=== PATIENT | female | born 1960 | race Caucasian/White ===

== ENCOUNTER 2017-10-19 10:48 | Emergency (ER) | END 2017-10-19 13:24 | disposition home or self-care (01) ==

== ENCOUNTER 2018-10-04 07:38 | Day surgery (SDC) | payer OTHER ==
[~2018-10-04] VITALS: Ht 162.6 cm; Wt 77.8 kg
[~2018-10-04 07:38] MED LIST: ASPI81TA50 PO; ATOR-2 PO; FLUO40CA PO; IBUP-1542 PO; METO-335 PO; PANT40TA4 PO; TRAM50TA2 PO
[2018-10-04] MEDS ORDERED: cyclobenzaprine (08:56)
[2018-10-04] MEDS ORDERED: ranitidine (08:56)
--- NOTE | 2018-10-04 09:02 | PREAC ---
Date/Time of Note Date/Time of Note DATE: 10/04/18 TIME: 08:59 Anesthesia Eval and Record Evaluation Time Pre-Procedure Interview DATE: 10/04/18 TIME: 08:59 Age 58 Sex female NPO: 8 hrs Preoperative diagnosis Abdominal pain, Gastritis, GI bleed, screening Planned procedure EGD, Colonoscopy Past Medical History Past Medical History: Includes Cardio: Dyslipidemia, PTCA/Stent GI: GERD Surgery & Anesthesia Issues No known issue Meds Anticoagulation: No Beta Domingo within 24 hr: No Reason Beta Domingo not given: Pt. not on B-Domingo Reported Medications [ranitidine] No Conflict Check 10/04/18 [cyclobenzaprine] No Conflict Check 10/04/18 Atorvastatin* (Atorvastatin*) 80 Mg Tablet, 80 MG PO QHS, #30 10/19/17 Pantoprazole* (Pantoprazole*) 40 Mg Tablet.dr, 40 MG PO AC BREAKFAST, #30 10/19/17 Aspirin (Aspir-Low) 81 Mg Tablet.dr, 81 MG PO DAILY, #30 10/19/17 Discontinued Reported Medications Metoprolol Succinate* (Toprol XL*) 25 Mg Tab.sr.24h, 25 MG PO DAILY, #30 10/19/17 Fluoxetine Hcl* (Fluoxetine Hcl*) 40 Mg Capsule, 40 MG PO DAILY, #30 10/19/17 Discontinued Scripts Ibuprofen* (Motrin*) 600 Mg Tab, 600 MG PO Q6H PRN for PAIN AND OR ELEVATED TEMP, #30 TAB Prov:CHRIS CEJA MD 10/19/17 Tramadol HCl (Tramadol HCl) 50 Mg Tablet, 50 MG PO Q6 PRN for PAIN, #12 TAB Prov:NESHA VELOZ 06/10/15 Meds reviewed: Yes Allergies Coded Allergies: latex (Verified Allergy, Intermediate, 10/19/17) Allergies Reviewed: Yes Labs/Studies Labs Reviewed: Reviewed by anesthesiologist test: N/A (n/a) Studies: ECG (n/a), CXR (n/a) Pre-procedure Exam Airway: Adequate mouth opening, Adequate thyromental dist Mallampati: Mallampati II Teeth: Normal Lung: Normal Heart: Normal ASA Physical Status ASA physical status: 2 Emergency: None Planned Anesthetic General/MAC: MAC Planned Pain Management Parenteral pain med Pre-operative Attestations Prior to commencing anesthesia and surgery, the patient was re-evaluated, there was verification of: *The patient's identity *The results of appropriate recent lab work and preoperative vital signs *The above evaluation not changing prior to induction *Anesthetic plan, risk benefits, alternative and complications discussed with patient/family; questions answered; patient/family understands, accepts and wishes to proceed. TIMOTHY LI MD Oct 04, 2018 09:02
[2018-10-04 09:17] VITALS: Ht 162.6 cm; Wt 77.8 kg
[2018-10-04 09:20] VITALS: BP 140/67; PULSE 79; RESP 18
[2018-10-04] MEDS ORDERED: PROPOFOL 60 ML ONE (09:56)
--- NOTE | 2018-10-04 10:00 | PAC ---
Date/Time of Note Date/Time of Note DATE: 10/04/18 TIME: 10:00 Post-Anesthesia Notes Post-Anesthesia Note Last documented vital signs T: 98.0 Activity: WNL Respiratory function: WNL Cardiovascular function: WNL Mental status: Baseline Pain reasonably controlled: Yes Hydration appropriate: Yes Nausea/Vomiting absent: Yes TIMOTHY LI MD Oct 04, 2018 10:00
[2018-10-04 10:25] VITALS: BP 118/62; PULSE 66; RESP 12
== END 2018-10-04 12:57 | disposition home or self-care (01) ==
LOC: GIL 07:38
PROVIDERS: ATTEND Internal Medicine Gastroenterology
DX: R19.5 Other fecal abnormalities (principal); D12.7 Benign neoplasm of rectosigmoid junction; K64.8 Other hemorrhoids; K29.50 Unspecified chronic gastritis without bleeding; I25.10 Atherosclerotic heart disease of native coronary artery without angina pectoris
CPT/HCPCS: 43239; 45380; 88305; 88312; Z7610